=== PATIENT | male | born 1985 ===

== ENCOUNTER 2019-12-14 02:28 | Emergency (ER) | payer SELFPAY ==
[~2019-12-14] VITALS: Ht 165 cm; Wt 75.0 kg
[2019-12-14 02:52] VITALS: BP 129/96
[2019-12-14] MEDS ORDERED: NF-CIPDEC OT (02:53)
--- NOTE | 2019-12-14 02:53 | ED EENT ---
History of Present Illness General Stated Complaint: RT EAR PAIN Source: patient (VIA CLINICAL PROJECT MANAGER), medical interpreter (LANGUAGE LINE) Exam Limitations: language barrier History of Present Illness Date Seen by Provider: Dec 14, 2019 Time Seen by Provider: 02:38 Initial Comments PT ARRIVES VIA POV C/O RIGHT EAR PAIN X 1 1/2 DAYS NO FEVER NO COUGH/URI SYMPTOMS HAS HAD A COUPLE OF EAR INFECTIONS IN THE PAST, LAST ONE A FEW YEARS AGO NO KNOWN EXPOSURE TO COVID Allergies and Home Medications Home Medications Ciprofloxacin HCl/Dexameth 7.5 Ml Soln, 7.5 ML OT BID 4 DROPS TO AFFECTED EAR Prescribed by: PARISH HANKINS on 12/14/19 0253 Patient Home Medication List Home Medication List Reviewed: Yes Review of Systems Review of Systems Constitutional: No fever Eyes: No Symptoms Reported Ears: See HPI, Pain Nose: no symptoms reported Mouth: no symptoms reported Throat: no symptoms reported Respiratory: no symptoms reported Cardiovascular: no symptoms reported Neurological: No Symptoms Reported Past Yvlptdi-Qbayhn-Ixxadn Hx Past Med/Social Hx: Reviewed and Corrections made Patient Social History Alcohol Use: Rarely Uses Recreational Drug Use: No Smoking Status: Never a Smoker Recent Foreign Travel: No Contact w/Someone Who Travel: No Past Medical History Surgeries: No Respiratory: No Cardiac: No Neurological: No Genitourinary: No Gastrointestinal: No Musculoskeletal: No Endocrine: No HEENT: No Cancer: No Psychosocial: No Integumentary: No Blood Disorders: No Physical Exam Vital Signs Vital Signs - First Documented 12/14/19 02:52 Temp 36.9 Pulse 66 Resp 18 B/P (MAP) 129/96 (107) Pulse Ox 100 O2 Delivery Room Air Height, Weight, BMI Height: '" Weight: lbs. oz. kg; BMI Method: General Appearance: WD/WN, no apparent distress Eyes: bilateral eye normal inspection Ears: right ear other (RIGHT EAC WITH MILD TO MODERATE INFLAMMATION--ERYTHEMA, SWELLING. NO DRAINAGE. + PAIN ON TRACTION OF EXTERNAL EAR. 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 Referrals: UNKNOWN (PCP) Primary Care Physician Patient Instructions: Outer Ear Infection (DC) Add. Discharge Instructions: TYLENOL 1 GRAM/ MOTRIN 800 MG 4 TIMES A DAY FOR PAIN DO NOT GET WATER IN EARS FOLLOW UP WITH OF PAULA IN 3-4 DAYS IF NO BETTER Scripts Ciprofloxacin HCl/Dexameth (Ciprodex Otic Suspension) 7.5 Ml Soln 7.5 ML OT BID for 7 Days, #1 EA 4 DROPS TO AFFECTED EAR Prov: PARISH HANKINS DO 12/14/19 PARISH HANKINS DO Dec 14, 2019 02:53
[2019-12-14] MEDS ORDERED: IBUPROFEN 800 MG (MOTRIN) TAB PO ONE (03:15)
[2019-12-14] MEDS ORDERED: ACETAMINOPHEN 500 MG TAB (TYLENOL) PO ONE (03:15)
== END 2019-12-14 03:09 | disposition home or self-care (01) ==
LOC: ER 02:33
DX: H60.91 Unspecified otitis externa, right ear (principal)
CPT/HCPCS: 99284